=== PATIENT | male | born 1935 | race African-American/Black ===

== ENCOUNTER 2022-03-30 15:38 | Emergency (ER) | payer MEDICARE, MEDICAID, SELFPAY ==
[2022-03-30] VITALS (10 sets, daily range): BP systolic 120–159; BP diastolic 76–94; PULSE 69–79; RESP 15–22; TEMP 36.6–37.2; O2SAT 99–100
--- NOTE | ~2022-03-30 | XR_ITS ---
EXAM: XR ankle LT min 3V DATE: 03/30/2022 21:22 HISTORY: swelling . COMPARISON: None available. FINDINGS: Normal mineralization. No fracture or dislocation. No lytic or blastic lesion. Joint space s are maintained. No erosion or periosteal change. Soft swelling about the ankle. IMPRESSION: No acute osseous finding in the left ankle. Reviewed, dictated and finalized at location K. ING ADVISOR
--- NOTE | ~2022-03-30 | XR_ITS ---
EXAM: XR ankle RT min 3V DATE: 03/30/2022 21:22 HISTORY: swelling . COMPARISON: None available. FINDINGS: Normal mineralization. No fracture or dislocation. No lytic or blastic lesion. Joint space s are maintained. No erosion or periosteal change. Soft tissue swelling about the ankle. IMPRESSION: No acute osseous finding in the right ankle. Reviewed, dictated and finalized at location K. EPT ARTIST
--- NOTE | 2022-03-30 20:35 | ECG_ITS ---
Measurements Intervals [place] Rate: 69 P: 76 FL: 143 QRS: 74 QRSD: 86 T: 89 QT: 443 QTc: 475 Interpretive Statements SINUS RHYTHM NONSPECIFIC T-WAVE ABNORMALITY ABNORMAL ECG NO PREVIOUS ECG AVAILABLE FOR COMPARISON Electronically Signed On 03-31-2022 12:38:18 [employer]AL [employer] TEACHER by Torin Hall M.D.
[2022-03-30] MEDS: FUROSEMIDE INJ 40 MG/4 ML VIAL 20 MG IV PUSH (20:55)
[2022-03-30 21:05] LABS: Basophils Percent Auto 0.4 % (0.2-1.2); Eosinophils Absolute Auto 0.1 K/mm3 (0-0.3); Eosinophils Percent Auto 1.3 % (0-4.4); Hematocrit 45.4 % (42.0-52.0); Hemoglobin 14.8 g/dL (14.0-18.0); Immature Granulocyte Absolute 0.01 K/mm3 (0.00-0.031); Immature Granulocyte Percent A 0.2 % (0-0.5); Lymphocytes Absolute Auto 1.71 K/mm3 (0.9-3.2); Lymphocytes Percent Auto 36.7 % (18.3-44.2); Mean Corpuscular HGB Conc 32.6 g/dl (32-36); Mean Corpuscular Volume 92.1 fl (80-100); Mean Platelet Volume 10.8 fl (7.4-10.4); Monocytes Absolute Auto 0.6 K/mm3 (0.1-0.6); Monocytes Percent Auto 13.3 % (2.6-8.5); Neutrophils Absolute Auto 2.2 K/mm3 (1.3-6.7); Neutrophils Percent Auto 48.1 % (45.5-73.1); Platelet Count Result 200 k/mm3 (150-375); Red Blood Count 4.93 M/mm3 (4.6-6.20); Red Cell Distribution Width 12.7 % (11.5-14.5); White Blood Count 4.7 K/mm3 (4.5-10.0)
[2022-03-30 21:11] LABS: Alanine Aminotransferase 14 U/L (6-50); Albumin Level 4.2 g/dL (3.5-5.1); Alkaline Phosphatase 90 U/L (38-126); Anion Gap 7 mmol/L (8-16); Aspartate Amino Transferase 25 U/L (17-59); Bilirubin,Total 0.6 mg/dL (0.2-1.3); Blood Urea Nitrogen 11 mg/dL (9-20); Calcium 8.3 mg/dL (8.4-10.2); Carbon Dioxide 28 mmol/L (22-30); Chloride 105 mmol/L (98-107); Estimated CRCL calculation 42 ml/min; Estimated Glomerular Filt Rate > 60; Glucose 98 mg/dL (65-110); Magnesium 1.9 mg/dL (1.6-2.3); Potassium 3.2 mmol/L (3.4-5.0); Sodium 140 mmol/L (137-145)
[2022-03-30 21:12] LABS: INR 1.1; Prothrombin Time 13.7 Seconds (11.1-14.7)
[2022-03-30 21:13] LABS: Partial Thromboplastin Time 32.9 SECONDS (22.3-36.8)
[2022-03-30 21:20] LABS: NT Pro B Type Natriuretic Pept 441 pg/mL (19.9-100)
[2022-03-30] MEDS: Please add drug allergy info to patient profile. 1 EACH XX (21:20)
[2022-03-30 21:37] LABS: Appearance Urine Clear (Clear); Bilirubin Urine Negative (Negative); Blood Urine Negative (Negative); Color Urine Yellow (Yellow); Glucose Urine UA Negative (Negative); Ketones Urine Negative (Negative); Leukocyte Esterase Ur Negative LEU/UL (Negative); Nitrate Urine Negative (Negative); Protein Urine Negative (Negative); Specific Grav Ur 1.015 (1.001-1.035); Urobilinogen Urine 0.2 mg/dL (<2.0)
[2022-03-30 21:59] LABS: Mucus Urine Rare /lpf; RBC Urine 0-2 /hpf (0-2); WBC Urine 0-3 /hpf
[2022-03-30 22:00] LABS: Add Urine Microscopic? NO
--- NOTE | 2022-03-30 22:28 | ED.GENADULT ---
HPI - General Adult General Chief complaint: Extremity Problem,Nontraumatic Stated complaint: feet are swollen Time Seen by Provider: 03/30/22 20:26 History of Present Illness HPI narrative: Patient is a 87-year-old gentleman who presents the emergency department with chief complaint of peripheral edema patient reports that he has history of dementia and is primary caregiver is his daughter. History is provided from her as the patient is unable to provide complete history patient reports that he has had no chest pain or shortness of breath. No trauma. Patient has been sitting up in a chair at night and has had his feet below the level of his heart patient is also supposed to be taking furosemide on an as-needed basis but the family has not had the prescription. Related Data Allergies Allergy/AdvReac Type Severity Reaction Status Date / Time No Known Allergies Allergy Verified 03/30/22 20:55 Review of Systems Review of Systems: A 10 system review of systems was completed on the patient and is negative except for what is stated in the HPI. Nursing and ancillary documentation was reviewed. Exam Narrative: GENERAL: Well-appearing, well-nourished, and in no acute distress. HEAD: Normocephalic, atraumatic. EYES: PERRLA and EOMI. ENT: Nares clear, no rhinorrhea or epistaxis. Mucous membranes moist. NECK: Supple. CHEST: Clear to auscultation. No respiratory distress. HEART: Regular rate and rhythm. No murmur heard. Normal peripheral pulses. ABDOMEN: Soft, nontender, nondistended, normal active bowel sounds. EXTREMITIES: Normal range of motion. +1 edema. SKIN: Warm, dry, no rash. NEURO: No focal deficits. Alert and oriented x3. PSYCH: Normal mood and affect. Course Course Emergency Course: EKG is sinus rhythm rate of [address] elevation or ST depression Differential diagnosis includes venous stasis, CHF, trauma, History was obtained through the daughter as the patient is unable to provide a reliable history Plain film x-rays of the ankles showed no evidence of fracture. Oratory studies were obtained and reviewed patient had a hemoglobin of 14.8 normal renal function BNP was 441 this is not significant elevated given the patient's age Urinalysis showed no evidence of UTI The patient was given a IV dose of Lasix in the emergency department Patient will be started on a low-dose Lasix and will be discharged to follow-up with his primary care provider Vital Signs Vital signs: Vital Signs Temperature 36.6 C 03/30/22 15:40 Pulse Rate 75 03/30/22 15:40 Respiratory Rate 15 03/30/22 15:40 Blood Pressure 159/76 H 03/30/22 15:40 Pulse Oximetry 99 03/30/22 15:40 Oxygen Delivery Room Air 03/30/22 15:40 Temperature 36.6 C 03/30/22 15:40 Pulse Rate 73 03/30/22 21:31 Respiratory Rate 16 03/30/22 21:31 Blood Pressure 143/94 H 03/30/22 21:31 Pulse Oximetry 100 03/30/22 21:31 Oxygen Delivery Room Air 03/30/22 15:40 Medical Decision Making Vital Signs Vital Signs: Vital Signs Temperature 36.6 C 03/30/22 15:40 Pulse Rate 75 03/30/22 15:40 Respiratory Rate 15 03/30/22 15:40 Blood Pressure 159/76 H 03/30/22 15:40 Pulse Oximetry 99 03/30/22 15:40 Oxygen Delivery Room Air 03/30/22 15:40 Temperature 36.6 C 03/30/22 15:40 Pulse Rate 73 03/30/22 21:31 Respiratory Rate 16 03/30/22 21:31 Blood Pressure 143/94 H 03/30/22 21:31 Pulse Oximetry 100 03/30/22 21:31 Oxygen Delivery Room Air 03/30/22 15:40 Lab Data 03/30/22 20:48 03/30/22 20:48 Labs: Lab Results 03/30/22 03/30/22 03/30/22 Range/Units 20:48 20:48 20:48 WBC 4.7 (4.5-10.0) K/mm3 RBC 4.93 (4.6-6.20) M/mm3 Hgb 14.8 (14.0-18.0) g/dL Hct 45.4 (42.0-52.0) % MCV 92.1 (80-100) fl MCH 30.0 (26-34) pg MCHC 32.6 (32-36) g/dl RDW 12.7 (11.5-14.5) % Plt Count 200 (150-375) k/mm3 MPV 10.8 H (7.4-10.4) fl Im
== END 2022-03-30 22:57 | disposition home or self-care (01) ==
PROVIDERS: Emergency Provider Emergency Medicine
DX: R60.0 Localized edema (principal); F03.90 Unspecified dementia, unspecified severity, without behavioral disturbance, psychotic disturbance, mood disturbance, and anxiety; R94.31 Abnormal electrocardiogram [ECG] [EKG]
CPT/HCPCS: 36415; 73610; 80053; 81003; 83735; 83880; 85025; 85610; 85730; 93005; 96374; 99284; J1940